=== PATIENT | male | born 1950 | race Caucasian/White ===

== ENCOUNTER 2017-11-12 13:43 | Emergency (ER) | payer MEDICARE ==
[2017-11-12 15:17] LABS: ABNORMAL IP MESSAGE 1; HEMATOCRIT 40.1 % (42.0-52.0); HEMOGLOBIN 13.9 g/dl (14.0-18.0); MEAN CORPUSCULAR HEMOGLOBIN 40.2 pg (29.0-33.0); MEAN CORPUSCULAR HGB CONC 34.7 g/dl (32.0-37.0); MEAN CORPUSCULAR VOLUME 115.9 fl (82.0-101.0); MEAN PLATELET VOLUME 12.9 fl (7.4-10.4); PLATELET COUNT 59 10^3/UL (140-415); POSITIVE DIFF @See below; RED BLOOD COUNT 3.46 10^6/ul (4.70-6.10); RED CELL DISTRIBUTION WIDTH 12.5 % (11.5-14.5)
[2017-11-12 15:17] LABS: WHITE BLOOD COUNT 2.3 10^3/ul (4.8-10.8)
[2017-11-12 15:20] LABS: ANION GAP 11 (8-16); BLOOD UREA NITROGEN 6 mg/dl (7-20); CALCIUM 8.5 mg/dl (8.4-10.2); CARBON DIOXIDE 24 mmol/L (21-31); CHLORIDE 108 mmol/L (97-110); CREATININE 0.66 mg/dl (0.61-1.24); GLUCOSE 109 mg/dl (70-220); POTASSIUM 5.3 mmol/L (3.5-5.1); SODIUM 138 mmol/L (135-144)
[2017-11-12 15:25] LABS: ADD MAN DIFF? YES
[2017-11-12 16:10] LABS: ANISOCYTOSIS 1+ (0-0); BAND NEUTROPHILS % (M) 3 % (0-4); EOSINOPHILS % (M) 2 % (0-7); LYMPHOCYTES #M 0.5 10^3/ul (0.8-2.9); LYMPHOCYTES % (M) 22 % (15-51); MONOCYTE #M 0.2 10^3/ul (0.3-0.9); MONOCYTES % (M) 13 % (0-11); PLATELET ESTIMATE SIG DECREASED; SEG NEUT #M 1.4 10^3/ul (1.6-7.5); SEGMENTED NEUTROPHILS (M) % 60 % (39-77)
== END 2017-11-12 16:50 | disposition home or self-care (01) ==
LOC: E/R 13:43
DX: F11.23 Opioid dependence with withdrawal (principal); D72.819 Decreased white blood cell count, unspecified; D69.6 Thrombocytopenia, unspecified
CPT/HCPCS: 36415; 80048; 85025; 93005; 99284-25

== ENCOUNTER 2018-06-14 20:52 | Observation (INO) | payer MEDICARE, OTHER ==
[2018-06-14] MEDS: ONDANSETRON 4 MG INJ IV (21:35)
[2018-06-14] MEDS: KETOROLAC 15 MG INJ IV (21:35)
[2018-06-14] MEDS: SOD CHLORIDE 0.9% 1,000 ML IV (21:35)
[2018-06-14 21:39] LABS: AADO2 Arterial 29.6 mmHg (7.0-24.0); Allen Test ACCEPTAB; Arterial Base Excess -0.2 mmol/L (-3.0-3); Arterial Blood Gas Oxygen Sat 97.1 mmHG (95.0-98.0); Arterial COHb 3.1 % (0.0-3.0); Arterial Fraction of Oxyhgb 93.9 % (93.0-99.0); Arterial HCO3 21.3 mmol/L (22.0-26.0); Arterial MetHb 0.2 % (0.0-1.5); Arterial pCO2 26.9 mmhg (35-45); MODE ROOM AIR; Site Right Radial
[2018-06-14 21:42] LABS: WHITE BLOOD COUNT 2.6 10^3/ul (4.8-10.8)
[2018-06-14 21:42] LABS: ABNORMAL IP MESSAGE 1; HEMOGLOBIN 13.4 g/dl (14.0-18.0); MEAN CORPUSCULAR HEMOGLOBIN 33.8 pg (29.0-33.0); MEAN CORPUSCULAR HGB CONC 33.5 g/dl (32.0-37.0); MEAN PLATELET VOLUME 11.4 fl (7.4-10.4); PLATELET COUNT 37 10^3/UL (140-415); POSITIVE DIFF @See below; RED BLOOD COUNT 3.96 10^6/ul (4.70-6.10); RED CELL DISTRIBUTION WIDTH 14.3 % (11.5-14.5)
[2018-06-14 21:43] LABS: ADD MAN DIFF? YES
[2018-06-14 21:45] LABS: ALANINE AMINOTRANSFERASE 39 IU/L (13-69); ALBUMIN 3.7 g/dl (3.3-4.9); ALBUMIN/GLOBULIN RATIO 0.82; ALKALINE PHOSPHATASE 133 IU/L (42-121); ANION GAP 13 (5-13); ASPARTATE AMINO TRANSFERASE 56 IU/L (15-46); BILIRUBIN,INDIRECT 1.8 mg/dl (0-1.1); BILIRUBIN,TOTAL 1.8 mg/dl (0.2-1.3); BLOOD UREA NITROGEN 9 mg/dl (7-20); CARBON DIOXIDE 22 mmol/L (21-31); CHLORIDE 101 mmol/L (97-110); CREATININE 0.64 mg/dl (0.61-1.24); Estimated GFR > 60 mL/min (>60); GLUCOSE 124 mg/dl (70-220); LIPASE 219 U/L (23-300); POTASSIUM 3.3 mmol/L (3.5-5.1); SODIUM 136 mmol/L (135-144); TOTAL PROTEIN 8.2 g/dl (6.1-8.1)
[2018-06-14 21:57] LABS: TROPONIN-I < 0.012 ng/ml (0.000-0.120)
[2018-06-14 22:06] LABS: EOSINOPHILS % (M) 2 % (0-7); LYMPHOCYTES #M 0.8 10^3/ul (0.8-2.9); LYMPHOCYTES % (M) 32 % (15-51); METAMYELOCYTES %M 2 % (0-0); MONOCYTE #M 0.1 10^3/ul (0.3-0.9); MONOCYTES % (M) 6 % (0-11); MYELOCYTES % (M) 1 % (0-0); PLATELET ESTIMATE SIG DECREASED; REACTIVE LYMPHOCYTES #M 0.1 10^3/ul (0.0-0.0); REACTIVE LYMPHOCYTES% (M) 7 % (0-0); SEGMENTED NEUTROPHILS (M) % 50 % (39-77); SMUDGE%M 28 % (0-0)
[2018-06-14 22:50] LABS: ETHANOL < 10.0 mg/dl (0-0)
[2018-06-15 01:35] LABS: AMPHETAMINE/METHAMPHETAMINE Negative (NEGATIVE); BARBITURATES Negative (NEGATIVE); BENZODIAZEPINES Negative (NEGATIVE); CANNABINOIDS Negative (NEGATIVE); COCAINE Negative (NEGATIVE); OPIATES Negative (NEGATIVE)
[2018-06-15] MEDS ORDERED: ACETAMINOPHEN 325 MG TAB PO (02:00)
[2018-06-15] MEDS ORDERED: NACL 0.9% 3 ML SYG IV (02:00)
[2018-06-15] MEDS ORDERED: LORAZEPAM 2 MG INJ IV (02:30)
[2018-06-15] MEDS: morphine 2 MG INJ IV (05:32)
[2018-06-15] MEDS: POTASSIUM CHLORIDE (SR) 20 MEQ TAB PO (05:32)
[2018-06-15 06:48] LABS: WHITE BLOOD COUNT 1.8 10^3/ul (4.8-10.8)
[2018-06-15 06:48] LABS: ABNORMAL IP MESSAGE 1; HEMATOCRIT 31.4 % (42.0-52.0); HEMOGLOBIN 10.8 g/dl (14.0-18.0); MEAN CORPUSCULAR HEMOGLOBIN 34.3 pg (29.0-33.0); MEAN CORPUSCULAR HGB CONC 34.4 g/dl (32.0-37.0); MEAN CORPUSCULAR VOLUME 99.7 fl (82.0-101.0); MEAN PLATELET VOLUME 12.3 fl (7.4-10.4); POSITIVE DIFF @See below; RED BLOOD COUNT 3.15 10^6/ul (4.70-6.10)
[2018-06-15 06:52] LABS: ADD MAN DIFF? YES; PLATELET COUNT 28 10^3/UL (140-415)
[2018-06-15 07:00] LABS: HEMOGLOBIN A1C 4.4 % (0-5.9)
[2018-06-15 07:30] LABS: TROPONIN-I 0.014 ng/ml (0.000-0.120)
[2018-06-15 07:31] LABS: CK-MB 2.99 ng/ml (0.0-2.4)
[2018-06-15 07:40] LABS: CK INDEX 1.2; CREATINE KINASE 250 IU/L (23-200)
[2018-06-15 07:42] LABS: ALANINE AMINOTRANSFERASE 35 IU/L (13-69); ALBUMIN 2.6 g/dl (3.3-4.9); ALKALINE PHOSPHATASE 81 IU/L (42-121); ANION GAP 2 (5-13); ASPARTATE AMINO TRANSFERASE 45 IU/L (15-46); BILIRUBIN,INDIRECT 1.9 mg/dl (0-1.1); BILIRUBIN,TOTAL 1.9 mg/dl (0.2-1.3); BLOOD UREA NITROGEN 8 mg/dl (7-20); CALCIUM 8.5 mg/dl (8.4-10.2); CARBON DIOXIDE 27 mmol/L (21-31); CHLORIDE 106 mmol/L (97-110); CREATININE 0.62 mg/dl (0.61-1.24); Estimated GFR > 60 mL/min (>60); GLUCOSE 87 mg/dl (70-220); MAGNESIUM 1.7 mg/dl (1.7-2.5); POTASSIUM 4.3 mmol/L (3.5-5.1); SODIUM 135 mmol/L (135-144); TOTAL PROTEIN 6.3 g/dl (6.1-8.1)
[2018-06-15 09:27] LABS: D-DIMER 1905.43 ng/ml (<460)
[2018-06-15 09:37] LABS: BAND NEUTROPHILS % (M) 1 % (0-4); EOSINOPHILS % (M) 4 % (0-7); GIANT THROMBO% (M) 3 % (0-0); LYMPHOCYTES #M 0.4 10^3/ul (0.8-2.9); LYMPHOCYTES % (M) 27 % (15-51); MONOCYTE #M 0.1 10^3/ul (0.3-0.9); MONOCYTES % (M) 7 % (0-11); PLATELET ESTIMATE SIG DECREASED; SEG NEUT #M 1.1 10^3/ul (1.6-7.5); SEGMENTED NEUTROPHILS (M) % 62 % (39-77); SMUDGE%M 15 % (0-0)
[2018-06-15] MEDS: ONDANSETRON 4 MG INJ IV (09:57)
[2018-06-15 10:40] LABS: INR 1.64; PROTIME 19.5 Sec (11.9-14.9); PT RATIO 1.5
[2018-06-15 10:41] LABS: PARTIAL THROMBOPLASTIN TIME 41.1 Sec (23.0-35.0)
[2018-06-15 10:53] LABS: CREATINE KINASE 272 IU/L (23-200)
[2018-06-15 11:02] LABS: TROPONIN-I < 0.012 ng/ml (0.000-0.120)
[2018-06-15 11:15] LABS: CK-MB 2.74 ng/ml (0.0-2.4)
[2018-06-15 11:57] LABS: HEPATITIS B SURFACE ANTIGEN NEGATIVE (NEGATIVE)
[2018-06-15 12:14] LABS: HEPATITIS B SURFACE ANTIBODY POSITIVE (NEGATIVE)
[2018-06-15 12:19] LABS: HEPATITIS C VIRAL ANTIBODY REACTIVE (NEGATIVE)
[2018-06-15 16:22] LABS: RAPID PLASMA REAGIN NONREACTIVE (NR)
[2018-06-15] MEDS: NICOTINE (21 MG/24 HR) PATCH TRANSDERM (16:22)
[2018-06-15 16:57] LABS: CREATINE KINASE 296 IU/L (23-200)
[2018-06-15 17:09] LABS: CK INDEX 1.1; TROPONIN-I < 0.012 ng/ml (0.000-0.120)
[2018-06-15 17:14] LABS: CK-MB 3.27 ng/ml (0.0-2.4)
[2018-06-15] MEDS: AL HYDROX/MG HYDROX/SIMETH 30 ML CUP PO (21:10)
[2018-06-16 06:02] LABS: ADD MAN DIFF? NO
[2018-06-16 06:09] LABS: ABNORMAL IP MESSAGE 1; BASOPHILS % 0.6 % (0.0-2.0); EOSINOPHILS % 2.5 % (0.0-7.0); HEMATOCRIT 33.1 % (42.0-52.0); HEMOGLOBIN 11.1 g/dl (14.0-18.0); LYMPHOCYTES # 0.8 10^3/ul (0.8-2.9); LYMPHOCYTES % 47.2 % (15.0-51.0); MEAN CORPUSCULAR HEMOGLOBIN 34.3 pg (29.0-33.0); MEAN CORPUSCULAR HGB CONC 33.5 g/dl (32.0-37.0); MEAN CORPUSCULAR VOLUME 102.2 fl (82.0-101.0); MEAN PLATELET VOLUME 11.3 fl (7.4-10.4); MONOCYTE # 0.2 10^3/ul (0.3-0.9); MONOCYTES % 10.4 % (0.0-11.0); NEUTROPHIL # 0.6 10^3/ul (1.6-7.5); NEUTROPHILS % 39.3 % (39.0-77.0); POSITIVE DIFF @See below; RED BLOOD COUNT 3.24 10^6/ul (4.70-6.10); RED CELL DISTRIBUTION WIDTH 14.2 % (11.5-14.5)
[2018-06-16 06:09] LABS: WHITE BLOOD COUNT 1.6 10^3/ul (4.8-10.8)
[2018-06-16 06:16] LABS: PLATELET COUNT 29 10^3/UL (140-415)
[2018-06-16 06:45] LABS: Estimated GFR > 60 mL/min (>60)
[2018-06-16 06:46] LABS: ALANINE AMINOTRANSFERASE 32 IU/L (13-69); ALBUMIN 2.7 g/dl (3.3-4.9); ALBUMIN/GLOBULIN RATIO 0.75; ALKALINE PHOSPHATASE 90 IU/L (42-121); ANION GAP 4 (5-13); ASPARTATE AMINO TRANSFERASE 54 IU/L (15-46); BILIRUBIN,INDIRECT 1.6 mg/dl (0-1.1); BILIRUBIN,TOTAL 1.6 mg/dl (0.2-1.3); BLOOD UREA NITROGEN 9 mg/dl (7-20); CALCIUM 8.4 mg/dl (8.4-10.2); CARBON DIOXIDE 28 mmol/L (21-31); CHLORIDE 107 mmol/L (97-110); CREATININE 0.65 mg/dl (0.61-1.24); GLUCOSE 85 mg/dl (70-220); POTASSIUM 4.4 mmol/L (3.5-5.1); SODIUM 139 mmol/L (135-144); TOTAL PROTEIN 6.3 g/dl (6.1-8.1)
[2018-06-16] MEDS: NICOTINE (21 MG/24 HR) PATCH TRANSDERM (08:35)
[2018-06-16] MEDS: IOHEXOL 350MG/ML 50 ML BTL (08:50)
[2018-06-16] MEDS: IOHEXOL 100 ML (08:50)
[2018-06-16] MEDS: SOD CHLORIDE 0.9% 100 ML (08:50)
== END 2018-06-16 14:58 | disposition home or self-care (01) ==
LOC: E/R 20:52 → TEL 06-15 02:23
DX: R55 Syncope and collapse (principal); K74.60 Unspecified cirrhosis of liver; D69.6 Thrombocytopenia, unspecified
CPT/HCPCS: 36600; 70450; 70486; 70553; 71045; 71275; 76705; 80053; 80307; 82550; 82553; 82803; 83036; 83690; 83735; 84443; 84484; 85025; 85378; 85610; 85730; 86592; 86706; 86803; 87340; 87536; 93005; 93880; 93970; 95819; G0378